=== PATIENT | male | born 1960 | race Two or more races ===

== ENCOUNTER 2020-10-22 14:59 | Outpatient (CLI) | payer OTHER ==
[2020-10-23] MEDS ORDERED: NABUMETONE750 MG PO (12:51)
[2020-10-23] MEDS ORDERED: AMBIEN5 MG PO (12:51)
[2020-10-23] MEDS ORDERED: XANAX0.25 MG PO (12:52)
[2020-10-23] MEDS ORDERED: PROZAC10 MG PO (12:52)
== END 2020-10-22 15:04 | disposition home or self-care (01) ==
LOC: LAB 14:59
PROVIDERS: ATTEND Colon & Rectal Surgery
DX: Z01.812 Encounter for preprocedural laboratory examination (principal); K59.09 Other constipation; N39.0 Urinary tract infection, site not specified; D68.8 Other specified coagulation defects; K60.3 Anal fistula; Z20.828 Contact with and (suspected) exposure to other viral communicable diseases; K62.5 Hemorrhage of anus and rectum; D59.8 Other acquired hemolytic anemias

== ENCOUNTER 2020-10-25 06:30 | Day surgery (SDC) | payer OTHER ==
[~2020-10-25 06:30] MED LIST: AMBIEN5 MG PO; NABUMETONE750 MG PO; PROZAC10 MG PO; XANAX0.25 MG PO
== END 2020-10-25 14:30 | disposition home or self-care (01) ==
LOC: CIR.AMB 06:30
PROVIDERS: ATTEND Colon & Rectal Surgery
DX: K60.3 Anal fistula (principal); Z20.822 Contact with and (suspected) exposure to COVID-19